=== PATIENT | male | born 1970 | race African-American/Black ===

== ENCOUNTER 2016-06-15 13:27 | Emergency (ER) | payer SELFPAY ==
[~2016-06-15] VITALS: Ht 177.8 cm; Wt 74.8 kg
[~2016-06-15 13:27] MED LIST: BENADRYL25 MG ORAL; HYDROCORTISONE28 G2 TP; IBUPROFEN600 MG ORAL; NKM; PREDNISONE20 MG ORAL
[2016-06-15 16:24] LABS: APPEARANCE,URINE SLIGHTLY CLOUDY; BASOPHILS % (AUTO) 1.7 % (0.0-2.0); EOSINOPHILS % (AUTO) 3.7 % (0.0-3.0); KETONES,URINE NEGATIVE (NEGATIVE); LEUKOCYTE ESTERASE ,URINE NEGATIVE (NEGATIVE); LYMPHOCYTES % (AUTO) 19.2 % (20.0-45.0); MEAN CORPUSCULAR HEMOGLOBIN 31.5 PG (27.0-31.0); MEAN CORPUSCULAR HGB CONC 31.8 G/DL (32.0-36.0); MEAN CORPUSCULAR VOLUME 99 FL (80-99); MEAN PLATELET VOLUME 5.3 FL (6.5-10.1); MONOCYTES % (AUTO) 4.6 % (1.0-10.0); NEUTROPHILS % (AUTO) 70.8 % (45.0-75.0); NITRITE,URINE NEGATIVE (NEGATIVE); PH,URINE 6.5 (4.5-8.0); PLATELET COUNT 537 K/UL (150-450); PROTEIN,URINE NEGATIVE (NEGATIVE); RED BLOOD COUNT 3.77 M/UL (4.70-6.10); RED CELL DISTRIBUTION WIDTH 12.4 % (11.6-14.8); UROBILINOGEN,URINE NORMAL MG/DL (0.0-1.0); WHITE BLOOD COUNT 11.5 K/UL (4.8-10.8)
[2016-06-15 16:31] LABS: ALANINE AMINOTRANSFERASE 13 U/L (3-41); ANION GAP 14 (5-15); ASPARTATE AMINO TRANSFERASE 17 U/L (5-40); CALCIUM 8.9 mg/dL (8.6-10.2); CARBON DIOXIDE 28 mEQ/L (20-30); CHLORIDE 100 mEQ/L (98-107); CREATININE 1.1 mg/dL (0.7-1.2); GLOMERULAR FILTRATION RATE > 60 mL/min (>60); HEMOLYSIS 4; POTASSIUM 4.4 mEQ/L (3.4-4.9); SODIUM 142 mEQ/L (135-145); TOTAL PROTEIN 6.7 g/dL (6.6-8.7)
[2016-06-15 17:00] VITALS: BP 120/70
[2016-06-15] MEDS ORDERED: HYDROCHLOROTHIA25 MG ORAL (17:02)
[2016-06-15 17:08] VITALS: BP 120/70
--- NOTE | 2016-06-16 12:07 | Diagnostic Imaging Report ---
Indication: Chest Technique: One view of the chest Comparison: none Findings: Lungs and pleural spaces are clear. Heart size is normal. Impression: No acute process
--- NOTE | 2016-06-16 12:09 | Diagnostic Imaging Report ---
Indication: Pain and swelling Technique: Sims-scale and duplex images of the upper abdomen were obtained Comparison: Findings: . Gallbladder is contracted.. Patient was not n.p.o. No definite stones, wall thickening, nor pericholecystic fluid. . Common bile duct measures 2 mm in diameter. No intrahepatic biliary ductal dilatation. Liver demonstrates normal echogenicity, no focal abnormality. Portal vein and hepatic veins are patent.. Pancreas is unremarkable. Spleen is unremarkable. Left kidney measures 11.1 cm in length. Right kidney measures 11.3 cm length. Both kidneys demonstrate normal echogenicity. There is no hydronephrosis. No focal abnormality. . Non-aneurysmal abdominal aorta. Impression: Negative
--- NOTE | 2016-06-18 17:30 | Emergency Room Report ---
History of Present Illness General Chief Complaint: Edema Source: Patient Present Illness HPI The pt is a 46 yo M who states a medical history of only psoriasis presents for bilateral feet swelling. The pt states that he first noticed swelling in the knees 3 days prior and it has progressively spread downwards and now encompasses the entire lower legs. Pain is described as a 9/10 dull ache and does not radiate from the legs. Pain worse with walking. The pt has used his cream for psoriasis which did not help. The pt denies any other symptoms such as N, V, F, chills, SOB, CP, cough, numbness/tingling, abd pain Allergies: Coded Allergies: No Known Allergies (Unverified , 07/02/15) Patient History Past Medical History: see triage record Pertinent Family History: none Reviewed Nursing Documentation: PMH: Agreed, PSxH: Agreed Nursing Documentation-PMH Past Medical History: No History, Except For Review of Systems All Other Systems: negative except mentioned in HPI Physical Exam Vital Signs Date Time Temp Pulse Resp B/P Pulse Ox O2 Delivery O2 Flow Rate FiO2 06/15/16 13:59 98.8 98 14 116/69 99 Room Air Sp02 EP Interpretation: reviewed, normal General Appearance: no apparent distress, alert, GCS 15, non-toxic Head: normocephalic, atraumatic Eyes: bilateral eye PERRL, bilateral eye normal inspection ENT: hearing grossly normal, normal pharynx, no angioedema, normal voice Neck: full range of motion, supple/symm/no masses Respiratory: chest non-tender, lungs clear, normal breath sounds, no wheezing, speaking full sentences Cardiovascular #1: regular rate, rhythm, no edema Gastrointestinal: normal bowel sounds, non tender, soft, non-distended, no guarding, no rebound Musculoskeletal: back normal, gait/station normal, normal range of motion, swelling - Bilat legs 3+ edema from Knee to toes, tender - TTP bilat from knees to toes Neurologic: alert, oriented x3, responsive, motor strength/tone normal, sensory intact, normal gait, speech normal Psychiatric: judgement/insight normal, memory normal, mood/affect normal, no suicidal/homicidal ideation Skin: other - 3+ pitting edema to bilat lower legs. SILT. Erythematous. Not warm to touch. Lymphatic: no adenopathy Medical Decision Making PA Attestation Dr. Macias is my supervising physician. Patient management was discussed with my supervising physician Diagnostic Impression: Primary Impression: Edema ER Course The pt is a 46 yo M who states a medical history of only psoriasis presents for bilateral feet swelling. DDx considered but not limited to: CHF, renal disease, DESIRAE, cellulitis among others. PE: vitals WNL. NAD RRR. No MRG Lungs CTA bilat. Abd is soft. Non tender. 3+ pitting edema to bilat lower legs. SILT. Erythematous. Not warm to touch. Skin intact. Labs: CBC shows slight leukocytosis CBC unremarkable. BNP elevated No proteinuria CXR unremarkable. Abd US unremarkable The pt will be treated with HCTZ and needs to FU with PMD. ER precautions given Labs Test 06/15/16 15:35 White Blood Count 11.5 K/UL (4.8-10.8) Red Blood Count 3.77 M/UL (4.70-6.10) Hemoglobin 11.9 G/DL (14.2-18.0) Hematocrit 37.3 % (42.0-52.0) Mean Corpuscular Volume 99 FL (80-99) Mean Corpuscular Hemoglobin 31.5 PG (27.0-31.0) Mean Corpuscular Hemoglobin Concent 31.8 G/DL (32.0-36.0) Red Cell Distribution Width 12.4 % (11.6-14.8) Platelet Count 537 K/UL (150-450) Mean Platelet Volume 5.3 FL (6.5-10.1) Neutrophils (%) (Auto) 70.8 % (45.0-75.0) Lymphocytes (%) (Auto) 19.2 % (20.0-45.0) Monocytes (%) (Auto) 4.6 % (1.0-10.0) Eosinophils (%) (Auto) 3.7 % (0.0-3.0) Basophils (%) (Auto) 1.7 % (0.0-2.0) Urine Color Pale yellow Urine Appearance Slightly cloudy Urine pH 6.5 (4.5-8.0) Urine Specific [place] 1.010 (1.005-1.035) Urine Protein Negative (NEGATIVE) Urine Glucose (UA) Negative (NEGATIVE) Urine Ketones Negative (NEGATIVE) Urine Occult Blood Negative (NEGATIVE) Urine Nitrite Negative (NEGATIVE) Urine Bilirubin Negative (NEGATIVE) Urine Urobilinogen Normal MG/DL (0.0-1.0) Urine Leukocyte Esterase Negative (NEGATIVE) Sodium Level 142 mEQ/L (135-145) Potassium Level 4.4 mEQ/L (3.4-4.9) Chloride Level 100 mEQ/L (98-107) Carbon Dioxide Level 28 mEQ/L (20-30) Anion Gap 14 (5-15) Blood Urea Nitrogen 9 mg/dL (7-23) Creatinine 1.1 mg/dL (0.7-1.2) Estimat Glomerular Filtration Rate > 60 mL/min (>60) Glucose Level 91 mg/dL (74-106) Calcium Level 8.9 mg/dL (8.6-10.2) Total Bilirubin < 0.2 mg/dL (0.0-1.2) Aspartate Amino Transf (AST/SGOT) 17 U/L (5-40) Alanine Aminotransferase (ALT/SGPT) 13 U/L (3-41) Alkaline Phosphatase 67 U/L (40-129) Pro-B-Type Natriuretic Peptide 703 pg/mL (0-125) Total Protein 6.7 g/dL (6.6-8.7) Albumin 3.5 g/dL (3.5-5.2) Globulin 3.2 g/dL Albumin/Globulin Ratio 1.0 (1.0-2.7) Lab Results Impression CBC shows slight leukocytosis CBC unremarkable. BNP elevated No proteinuria EKG Diagnostic Results Rate: normal Rhythm: NSR ST Segments: no acute changes PA Scribe Text Unremarkable per SP Chest X-Ray Diagnostic Results EP Interpretation: Yes Findings: no consolidation, no effusion, no pneumothorax, no acute cardiopulmonary disease Number of Views: 1 PA Scribe Text I'm acting as scribe for my supervising physician. My supervising physician's interpretation of the chest xray is that it is unremarkable. CT/MRI/US Diagnostic Results CT/MRI/US Diagnostic Results : Imaging Test Ordered: Abd US Impression unremarkable Last Vital Signs Date Time Temp Pulse Resp B/P Pulse Ox O2 Delivery O2 Flow Rate FiO2 06/15/16 17:08 98.7 86 16 120/70 99 Room Air Status: improved Disposition: HOME, SELF-CARE Condition: Improved Scripts Hydrochlorothiazide* (HYDROCHLOROTHIAZIDE*) 25 Mg Tablet 25 MG ORAL DAILY, #14 TAB Prov: AMBER CROUCH 06/15/16 Patient Instructions: Edema, Peripheral Edema Additional Instructions: I discussed my findings with the patient. All questions and concerns have been answered. Treatment and medication compliance have been addressed. I advised the patient that they need to follow up with PMD in 3-5 days. Return to ED if symptoms worsen, new symptoms arise, or if needed for any reason. Patient verbalized understanding of discharge instructions. AMBER CROUCH Jun 18, 2016 17:30
== END 2016-06-15 17:08 | disposition home or self-care (01) ==
LOC: EMR 15:16
DX: R60.0 Localized edema (principal); D72.829 Elevated white blood cell count, unspecified
CPT/HCPCS: 36415; 71010; 76700; 80053; 81003; 83880; 85025; 99283